=== PATIENT | female | born 1970 | race Caucasian/White ===

== ENCOUNTER 2018-05-17 12:02 | Emergency (ER) | payer BC, OTHER ==
[~2018-05-17] VITALS: Ht 144.8 cm; Wt 88.0 kg
[2018-05-17 12:12] VITALS: Ht 144.8 cm; Wt 88.0 kg
[2018-05-17] MEDS ORDERED: KETOROLAC 30 MG INJ IM STA (13:10)
[2018-05-17] MEDS ORDERED: AMOX500C2 PO (13:47)
[2018-05-17] MEDS ORDERED: IBUP-1542 PO (13:47)
--- NOTE | 2018-05-17 13:49 | ERD ---
ER Documentation Chief Complaint Chief Complaint HANSON WITH BACK/BODY ACHES W/ FEVER X 2 DAYS HPI This 47-year-old female presents with body aches, bitemporal headache, fever at home, cough for last 3 days. She has vomiting, abdominal pain, diarrhea, urinary complaints. She denies any history of injury, visual changes. ROS All systems reviewed and are negative except as per history of present illness. Medications Home Meds Active Scripts Amoxicillin* (Amoxicillin*) 500 Mg Cap, 500 MG PO TID for 10 Days, CAP Prov:LOLA GREEN MD 05/17/18 Ibuprofen* (Motrin*) 600 Mg Tab, 600 MG PO Q6, #15 TAB Prov:LOLA GREEN MD 05/17/18 Allergies Allergies: Coded Allergies: No Known Allergy (Unverified , 05/17/18) PMhx/Soc Medical and Surgical Hx: pt denies Medical Hx Hx Alcohol Use: No Hx Substance Use: No Hx Tobacco Use: No Smoking Status: Never smoker FmHx Family History: No diabetes, No coronary disease, No other Physical Exam Vitals Vital Signs Date Temp Pulse Resp B/P (MAP) Pulse Ox O2 O2 Flow FiO2 Time Delivery Rate 05/17/18 99.1 82 18 122/78 98 Room Air 14:24 (93) 05/17/18 99.5 119 18 130/80 98 12:12 (97) Physical Exam Const: No acute distress Head: Atraumatic Eyes: Normal Conjunctiva ENT: Normal External Ears, Nose and Mouth. Right TM red with decreased light reflex. Neck: Full range of motion. No meningismus. Resp: Clear to auscultation bilaterally dry cough without rales, wheezing or retractions. Cardio: Regular rate and rhythm, no murmurs Abd: Soft, non tender, non distended. Normal bowel sounds Skin: No petechiae or rashes Back: No midline or flank tenderness Ext: No cyanosis, or edema Neur: Awake and alert Psych: Normal Mood and Affect Results 24 hrs Laboratory Tests Test 05/17/18 13:29 POC Beta HCG, Qualitative NEGATIVE Current Medications Medications Dose Sig/Grisel Start Time Status Last (Trade) Ordered Route PRN Stop Time Admin Dose Reason Admin Ketorolac 30 mg ONCE STAT 05/17/18 DC 05/17/18 Tromethamine IM 13:10 05/17/18 13:35 (Toradol) 13:12 Procedures/MDM Patient presents with cough, body aches, fever at home without fever triage. She has symptoms suggestive of tension headache as well. She has signs of otitis media although additional symptoms suggest a viral syndrome. Will treat with ibuprofen, amoxicillin given findings on ear exam. Patient is advised to recheck for new or worsening symptoms with primary care doctor. The patient was stable with no new complaints during the ER course. Clinically, there is no current evidence to suggest meningitis, sepsis, acute abdomen, pneumonia, stroke, acute coronary syndrome, pulmonary embolism, aortic dissection or any other emergent condition appearing to require further evaluation or hospitalization. Patient counseled regarding my diagnostic impression and care plan. Prior to discharge all questions answered. Pt agrees with treatment plan and understands strict return precautions. Pt is instructed to follow up with primary care provider within 24-48 hours. Precautionary instructions provided including instructions to return to the ER if not improving or for any worsening or changing symptoms or concerns. Departure Diagnosis: Primary Impression: Otitis media Otitis media type: suppurative Chronicity: acute Laterality: right Recurrence: not specified as recurrent Spontaneous tympanic membrane rupture: without spontaneous rupture Qualified Codes: H66.001 - Acute suppurative otitis media without spontaneous rupture of ear drum, right ear Additional Impression: Upper respiratory infection URI type: unspecified URI Qualified Codes: J06.9 - Acute upper respiratory infection, unspecified Condition: Stable Patient Instructions: Otitis Media, Abx Tx (Adult) [facility] Usted se hanson hecho un examen mdico de control que le indica que no est en pearl condicin que requiera tratamiento urgente en el Departamento de Emergencia. Un estudio ms profundo y el tratamiento de sheppard condicin pueden esperar sin ningn riesgo hasta que usted sea atendida/o en el consultorio de sheppard mdico o pearl clnica. Es responsabilidad suya arreglar pearl cammy para el seguimiento del roland. MANEJO DE CONDICIONES NO URGENTES EN EL FUTURO 1) Si usted tiene un mdico de atencin primaria: Usted debera llamar a sheppard mdico de atencin primaria antes de venir al departamento de emergencia. Despus de las horas de consultorio, sheppard doctor o sheppard asociado/a est disponible por telfono. El mdico o enfermero de antelmo en el servicio telefnico puede asesorarle por jovany medio para atender el problema, o roland contrario se puede programar pearl cammy. 2) Si usted no tiene un mdico de atencin primaria: Llame al mdico o clnica de referencia que aparece abajo scottie las horas de consultorio para hacer pearl cammy para que le vean. CLINICAS: [place] [id number] [phone] [facility] [phone] [facility] [phone] [facility]. [place] [id number] [phone] [place] [id number] [phone] [facility]. [phone] [address] Additional Instructions: Cheque otro vez con sheppard doctor primario en el proximo milligan or regresa para mas o nueva simptomas. LOLA GREEN MD May 17, 2018 13:49
[2018-05-17 14:24] VITALS: BP 122/78; PULSE 82; RESP 18
== END 2018-05-17 14:25 | disposition home or self-care (01) ==
LOC: FTE 12:02
DX: H66.001 Acute suppurative otitis media without spontaneous rupture of ear drum, right ear (principal); J06.9 Acute upper respiratory infection, unspecified
CPT/HCPCS: 81025; 96372; J1885; Z7502